=== PATIENT | male | born 1960 | race African-American/Black ===

== ENCOUNTER 2018-01-27 07:25 | Inpatient (IN) | payer MEDICAID ==
[~2018-01-27] VITALS: Ht 182.9 cm; Wt 104.3 kg
[2018-01-27] VITALS (23 sets, daily range): BP systolic 100–142; BP diastolic 52–83
[2018-01-27] MEDS ORDERED: SODIUM CHLORIDE 0.9% 1000ML BAG (SEPSIS BOLUS) IV ONE (07:45)
[2018-01-27] MEDS ORDERED: INSULIN REGULAR (DRIP) 100 UNITS in SODIUM CHLORIDE 0.9% 100 ML IV ONE (07:45)
[2018-01-27] MEDS ORDERED: LIDOCAINE HCL 2% JELLY 5ML TOP ONE (08:15)
[2018-01-27 08:29] LABS: CLARITY URINE CLOUDY (CLEAR); COLOR URINE DARK YELLOW (YELLOW); KETONES URINE TRACE (NEGATIVE); LEUKOCYTE ESTERASE URINE NEGATIVE (NEGATIVE); MEAN CORPUSCULAR VOLUME 83.2 fL (80.0-94.0); MEAN PLATELET VOLUME 8.3 fl (7.4-10.4); NITRITE URINE NEGATIVE (NEGATIVE); OCCULT BLOOD URINE TRACE (NEGATIVE); PROTEIN URINE NEGATIVE (NEGATIVE); RED BLOOD CELL COUNT 2.38 mill/uL (4.7-6.1); RED CELL DISTRIBUTION WIDTH 17.4 % (11.6-14.6); SPECIFIC GRAVITY URINE 1.018 (1.005-1.030); UROBILINOGEN URINE 0.2 E.U./dL (0.2-1.0)
[2018-01-27] MEDS ORDERED: INSULIN REGULAR (DRIP) 100 UNITS in SODIUM CHLORIDE 0.9% 99 ML IV ONE (08:30)
[2018-01-27 08:35] LABS: CHLORIDE 92 mEq/L (98-107)
[2018-01-27 08:37] LABS: HEMATOCRIT. 19.8 % (42.0-52.0); HEMOGLOBIN. 6.9 g/dL (14.0-18.0); PLATELET 50 x1000/uL (130-400)
[2018-01-27 08:39] LABS: ETHANOL BLOOD < 10 mg/dL
[2018-01-27 08:42] LABS: INR 1.1; PARTIAL THROMBOPLASTIN TIME 26.3 sec (23.4-31.0); PROTHROMBIN TIME 11.4 sec (9.1-11.1)
[2018-01-27 08:43] LABS: PHOSPHORUS 6.5 mg/dL (2.5-4.9)
[2018-01-27 08:45] LABS: BETA HYDROXYBUTYRATE 3.1 mMol/L (0.0-0.3)
[2018-01-27] MEDS ORDERED: PIPERACILLIN/TAZ 3.375G PREMIX 50 ML IV ONE (08:45)
[2018-01-27] MEDS ORDERED: VANCOMYCIN 1 G PREMIX 200 ML IV SCH ×2 (08:45→09:30)
[2018-01-27 08:49] LABS: *AMPHETAMINES SCREEN URINE NEGATIVE (NEGATIVE); *BARBITURATES SCREEN URINE NEGATIVE (NEGATIVE); *BENZODIAZEPINES SCREEN URINE NEGATIVE (NEGATIVE); *COCAINE SCREEN URINE NEGATIVE (NEGATIVE); METHADONE URINE SCREEN NEGATIVE (NEGATIVE); OPIATES URINE SCREEN NEGATIVE (NEGATIVE)
[2018-01-27 08:50] LABS: CANNABINOID URINE SCREEN NEGATIVE (NEGATIVE); PHENCYCLIDINE URINE SCREEN NEGATIVE (NEGATIVE)
[2018-01-27 08:57] LABS: PLATELET ESTIMATE MARKEDLY DECREASED; TOTAL IRON BINDING CAPACITY 152 ug/dL (250-450)
[2018-01-27] MEDS ORDERED: CALCIUM CHLORIDE 1GM/10ML SYR IV ONE (09:15)
[2018-01-27] MEDS ORDERED: INSULIN REGULAR (HUMULIN R) 300UNITS/3ML IV ONE (09:15)
[2018-01-27] MEDS ORDERED: SODIUM BICARBONATE 8.4% 1 MEQ/ML 50ML SYR IV ONE (09:15)
[2018-01-27] MEDS ORDERED: DEXTROSE 50% WATER 50ML SYRINGE IV ONE (09:15)
[2018-01-27] MEDS ORDERED: DEXT 5%/0.45% NACL 1000ML 1,000 ML IV SCH (09:24)
[2018-01-27] MEDS ORDERED: CLONIDINE 0.1MG TABLET PO PRN (09:30)
[2018-01-27] MEDS ORDERED: GUAIFENESIN 200MG/10ML SUGAR FREE UDC PO PRN (09:30)
[2018-01-27] MEDS ORDERED: DIPHENHYDRAMINE 50MG/ML VIAL IV PRN (09:30)
[2018-01-27] MEDS ORDERED: IPRATROPIUM/ALBUTEROL 0.5-3(2.5)MG/3ML NEB INH PRN (09:30)
[2018-01-27] MEDS ORDERED: ONDANSETRON HCL 4MG/2ML INJ IV PRN (09:30)
[2018-01-27] MEDS ORDERED: NA PHOS,M-B/NA PHOS,DI-BA ENEMA 118ML PR PRN (09:30)
[2018-01-27] MEDS ORDERED: MAGNESIUM/ALUMINUM HYDROXIDE/SIMETHICONE 30ML UDC PO PRN (09:30)
[2018-01-27] MEDS ORDERED: DEXTROSE 50% WATER 50ML SYRINGE IV PRN (09:30)
[2018-01-27] MEDS ORDERED: LIDOCAINE HCL 1% 20ML VIAL (Pyxis) INJ ONE (09:50)
[2018-01-27 10:09] LABS: BG BASE EXCESS -9.5 mmol/L (-2.0-2.0); BG CARBOXYHEMOGLOBIN 0.1 % (0.5-1.5); BG DEOXYHEMOGLOBIN 2.8 % (0.0-5.0); BG FRACTION INSPIRED OXYGEN 21; BG HCO3 ACT 14.1 mmol/L (22.0-26.0); BG METHEMOGLOBIN 0.4 % (0.0-1.5); BG OXYGEN SATURATION 97.2 % (92.0-98.5); BG OXYHEMOGLOBIN 96.7 % (94.0-97.0); BG PCO2 22.7 mmHg (35.0-45.0); BG PH 7.411 (7.350-7.450); BG PO2 109.3 mmHg (75.0-100.0); BG SAMPLE SITE RIGHT BRACHIAL; BG VENT MODE NASAL CANNULA
[2018-01-27] MEDS ORDERED: PIPERACILLIN/TAZ 2.25G PREMIX 50 ML IV SCH (12:00)
[2018-01-27] MEDS ORDERED: SODIUM POLYSTYRENE SULFONATE 15 G/60 ML BOT PO NR (12:00)
[2018-01-27] MEDS: BLOOD SUGAR DIAGNOSTIC STRIP TEST SCH ×3 (12:17→20:56)
[2018-01-27] MEDS: INSULIN LISPRO 100 UNITS/ML SUBCUT SCH ×3 (12:49→20:55)
[2018-01-27] MEDS: SODIUM CHLORIDE 0.9% INJ 3ML FLUSH IVF SCH ×2 (13:02→21:28)
[2018-01-27 15:36] LABS: T4 FREE 1.29 ng/dL (0.76-1.46)
[2018-01-27 15:37] LABS: CREATINE KINASE MB FRACTION 1.1 ng/mL (0.5-3.6)
[2018-01-27] MEDS ORDERED: ACET-2178 PO (16:40)
[2018-01-27] MEDS ORDERED: LISI-604 PO (16:40)
[2018-01-27] MEDS ORDERED: METF500S7 PO (16:40)
[2018-01-27] MEDS ORDERED: HYDR25TA PO (16:40)
[2018-01-27] MEDS ORDERED: MELO-104 PO (16:40)
[2018-01-27] MEDS ORDERED: AMLO10TA80 PO (16:40)
[2018-01-27] MEDS ORDERED: ASPI-1158 PO (16:40)
[2018-01-27] MEDS ORDERED: GLIP5TAB12 PO (16:40)
[2018-01-27] MEDS ORDERED: GABA-529 PO (16:40)
[2018-01-27] MEDS: PIPERACILLIN/TAZ 2.25G PREMIX 50 ML IV SCH (17:27)
[2018-01-27] MEDS ORDERED: VANCOMYCIN 1 G PREMIX 200 ML IV NR (17:30)
[2018-01-27] MEDS: DEXT 5%/0.9% NACL 1,000 ML IV SCH (19:15)
[2018-01-27] MEDS: ACETAMINOPHEN 650MG/20.3ML UDC GT PRN (21:28)
[2018-01-27 23:07] LABS: D-DIMER 26.15 mg/L FEU (<0.50)
[2018-01-28] VITALS (41 sets, daily range): BP systolic 95–153; BP diastolic 41–105
[2018-01-28 00:16] LABS: CREATINE KINASE 204 IU/L (39-308)
[2018-01-28 00:17] LABS: CREATINE KINASE MB FRACTION < 1.0 ng/mL (0.5-3.6)
[2018-01-28] MEDS: PIPERACILLIN/TAZ 2.25G PREMIX 50 ML IV SCH ×5 (02:28→23:16)
[2018-01-28] MEDS: DEXT 5%/0.9% NACL 1,000 ML IV SCH ×3 (04:54→23:16)
[2018-01-28] MEDS: ACETAMINOPHEN 650MG/20.3ML UDC GT PRN ×3 (05:50→21:52)
[2018-01-28 05:55] LABS: HEMATOCRIT. 24.4 % (42.0-52.0); HEMOGLOBIN. 8.7 g/dL (14.0-18.0); MEAN CORPUSCULAR HEMOGLOBIN 30.1 pg (28.0-32.0); MEAN CORPUSCULAR VOLUME 84.1 fL (80.0-94.0); RED BLOOD CELL COUNT 2.91 mill/uL (4.7-6.1); RED CELL DISTRIBUTION WIDTH 16.7 % (11.6-14.6)
[2018-01-28 06:13] LABS: CHLORIDE 103 mEq/L (98-107)
[2018-01-28 06:24] LABS: LDL CHOLESTEROL 100 mg/dL (5-100); PHOSPHORUS 4.4 mg/dL (2.5-4.9)
[2018-01-28 06:25] LABS: HDL CHOLESTEROL 35 mg/dL (40-59)
[2018-01-28] MEDS: SODIUM CHLORIDE 0.9% INJ 3ML FLUSH IVF SCH ×3 (06:27→21:54)
[2018-01-28 06:36] LABS: PLATELET 43 x1000/uL (130-400)
[2018-01-28 07:33] LABS: PLATELET ESTIMATE MARKEDLY DECREASED
[2018-01-28] MEDS: BLOOD SUGAR DIAGNOSTIC STRIP TEST SCH ×4 (07:50→21:52)
[2018-01-28] MEDS: INSULIN LISPRO 100 UNITS/ML SUBCUT SCH ×4 (09:03→21:52)
[2018-01-28] MEDS ORDERED: VANCOMYCIN 1 G PREMIX 200 ML IV SCH (12:30)
[2018-01-29] VITALS (11 sets, daily range): BP systolic 95–138; BP diastolic 54–74
[2018-01-29] MEDS: PIPERACILLIN/TAZ 2.25G PREMIX 50 ML IV SCH ×3 (05:55→19:18)
[2018-01-29] MEDS: SODIUM CHLORIDE 0.9% INJ 3ML FLUSH IVF SCH ×3 (05:55→21:19)
[2018-01-29 06:46] LABS: HEMATOCRIT. 21.9 % (42.0-52.0); HEMOGLOBIN. 7.7 g/dL (14.0-18.0); MEAN CORPUSCULAR VOLUME 84.8 fL (80.0-94.0); MEAN PLATELET VOLUME 6.6 fl (7.4-10.4); RED BLOOD CELL COUNT 2.58 mill/uL (4.7-6.1); RED CELL DISTRIBUTION WIDTH 16.1 % (11.6-14.6)
[2018-01-29 07:16] LABS: CHLORIDE 101 mEq/L (98-107)
[2018-01-29 07:34] LABS: PHOSPHORUS 3.7 mg/dL (2.5-4.9)
[2018-01-29] MEDS: INSULIN LISPRO 100 UNITS/ML SUBCUT SCH ×4 (07:40→21:17)
[2018-01-29 07:51] LABS: BETA HYDROXYBUTYRATE < 0.1 mMol/L (0.0-0.3)
[2018-01-29 08:02] LABS: PLATELET 41 x1000/uL (130-400)
[2018-01-29 08:24] LABS: VITAMIN B12 SERUM >2000 pg/mL pg/mL (211-911)
[2018-01-29 09:29] LABS: NUCLEATED RED BLOOD CELLS 2 /100 WBC
[2018-01-29 09:30] LABS: PLATELET ESTIMATE MARKEDLY DECREASED
[2018-01-29] MEDS: ACETAMINOPHEN 650MG/20.3ML UDC GT PRN ×2 (11:50→20:23)
[2018-01-29] MEDS: BLOOD SUGAR DIAGNOSTIC STRIP TEST SCH ×3 (11:51→21:17)
[2018-01-29] MEDS: DEXT 5%/0.9% NACL 1,000 ML IV SCH (14:22)
[2018-01-29] MEDS: HYDROCODONE/ACETAMINOPHEN 5/325MG TABLET PO PRN (16:29)
[2018-01-29] MEDS ORDERED: MAGNESIUM 2 G PREMIX 50 ML IV NR (17:30)
[2018-01-30] VITALS (8 sets, daily range): BP systolic 114–165; BP diastolic 67–78
[2018-01-30] MEDS: PIPERACILLIN/TAZ 2.25G PREMIX 50 ML IV SCH ×5 (05:23→23:49)
[2018-01-30] MEDS: SODIUM CHLORIDE 0.9% INJ 3ML FLUSH IVF SCH ×3 (05:24→21:27)
[2018-01-30] MEDS: DEXT 5%/0.9% NACL 1,000 ML IV SCH ×3 (05:25→21:26)
[2018-01-30] MEDS: BLOOD SUGAR DIAGNOSTIC STRIP TEST SCH ×4 (06:39→21:27)
[2018-01-30 07:32] LABS: INR 1.1; PARTIAL THROMBOPLASTIN TIME 27.2 sec (23.4-31.0); PROTHROMBIN TIME 11.4 sec (9.1-11.1)
[2018-01-30 07:46] LABS: HEMOGLOBIN. 7.3 g/dL (14.0-18.0); MEAN CORPUSCULAR HEMOGLOBIN 30.2 pg (28.0-32.0); MEAN CORPUSCULAR VOLUME 84.4 fL (80.0-94.0); MEAN PLATELET VOLUME 6.5 fl (7.4-10.4); PLATELET 54 x1000/uL (130-400); RED BLOOD CELL COUNT 2.41 mill/uL (4.7-6.1); RED CELL DISTRIBUTION WIDTH 16.5 % (11.6-14.6)
[2018-01-30 07:57] LABS: HEMATOCRIT. 20.3 % (42.0-52.0)
[2018-01-30 09:48] LABS: CHLORIDE 102 mEq/L (98-107)
[2018-01-30 10:04] LABS: PHOSPHORUS 3.4 mg/dL (2.5-4.9)
[2018-01-30] MEDS ORDERED: MAGNESIUM 2 G PREMIX 50 ML IV NR (10:30)
[2018-01-30] MEDS: INSULIN LISPRO 100 UNITS/ML SUBCUT SCH ×3 (11:49→21:00)
[2018-01-30] MEDS ORDERED: PROPOFOL 200MG/20ML VIAL IV ONE (13:50)
[2018-01-30] MEDS ORDERED: LIDOCAINE HCL 1% 20ML VIAL (Pyxis) INJ ONE (13:50)
[2018-01-30] MEDS: ACETAMINOPHEN 650MG SUPP PR PRN (15:08)
[2018-01-30] MEDS ORDERED: GLIP5TAB12 PO (15:17)
[2018-01-30] MEDS ORDERED: VANCOMYCIN 1,250 MG in SODIUM CHLORIDE 0.9% 250 ML IV SCH (16:00)
[2018-01-30 16:33] LABS: ATYPICAL LYMPHOCYTES 1; NUCLEATED RED BLOOD CELLS 1 /100 WBC; PLATELET ESTIMATE MARKEDLY DECREASED
[2018-01-30] MEDS: ACETAMINOPHEN 650MG/20.3ML UDC GT PRN (23:49)
[2018-01-31] VITALS (9 sets, daily range): BP systolic 114–157; BP diastolic 63–85
[2018-01-31] MEDS: HYDROCODONE/ACETAMINOPHEN 5/325MG TABLET PO PRN (02:59)
[2018-01-31] MEDS: ACETAMINOPHEN 650MG/20.3ML UDC GT PRN ×2 (05:52→15:45)
[2018-01-31] MEDS: SODIUM CHLORIDE 0.9% INJ 3ML FLUSH IVF SCH ×3 (05:52→22:08)
[2018-01-31] MEDS: PIPERACILLIN/TAZ 2.25G PREMIX 50 ML IV SCH ×3 (05:52→20:41)
[2018-01-31] MEDS: INSULIN LISPRO 100 UNITS/ML SUBCUT SCH ×4 (06:27→22:07)
[2018-01-31] MEDS: BLOOD SUGAR DIAGNOSTIC STRIP TEST SCH ×4 (06:27→21:00)
[2018-01-31 07:27] LABS: MEAN CORPUSCULAR HEMOGLOBIN 29.9 pg (28.0-32.0); MEAN CORPUSCULAR VOLUME 84.4 fL (80.0-94.0); MEAN PLATELET VOLUME 6.7 fl (7.4-10.4); PLATELET 59 x1000/uL (130-400); RED BLOOD CELL COUNT 2.25 mill/uL (4.7-6.1); RED CELL DISTRIBUTION WIDTH 16.4 % (11.6-14.6)
[2018-01-31 07:53] LABS: HEMOGLOBIN. 6.7 g/dL (14.0-18.0)
[2018-01-31 07:57] LABS: CHLORIDE 102 mEq/L (98-107)
[2018-01-31 08:07] LABS: PHOSPHORUS 3.6 mg/dL (2.5-4.9)
[2018-01-31 10:48] LABS: PLATELET ESTIMATE MARKEDLY DECREASED
[2018-01-31] MEDS ORDERED: MAGNESIUM 2 G PREMIX 50 ML IV NR (11:00)
[2018-01-31] MEDS: FERROUS SULFATE 325MG TABLET PO SCH (11:59)
[2018-01-31] MEDS ORDERED: SODIUM PHOS,M-BASIC-D-BASIC 15 MM in DEXT 5% WATER 245 ML IV SCH (13:00)
[2018-01-31] MEDS ORDERED: VANCOMYCIN 1,250 MG in SODIUM CHLORIDE 0.9% 250 ML IV SCH (13:00)
[2018-01-31] MEDS: VANCOMYCIN 1 G PREMIX 200 ML IV SCH (16:00)
[2018-01-31] MEDS ORDERED: DIPHENHYDRAMINE 50MG/ML VIAL IV NR (16:00)
[2018-01-31] MEDS ORDERED: IBUPROFEN 400MG TABLET PO NR (16:45)
[2018-01-31 17:37] LABS: HEPATITIS B SURFACE ANTIGEN NEGATIVE
[2018-01-31 18:07] LABS: HEPATITIS A AB IGM NEGATIVE (NEGATIVE)
[2018-02-01] VITALS (31 sets, daily range): BP systolic 120–179; BP diastolic 62–104
[2018-02-01] MEDS: PIPERACILLIN/TAZ 2.25G PREMIX 50 ML IV SCH ×5 (00:54→23:56)
[2018-02-01] MEDS: ACETAMINOPHEN 650MG/20.3ML UDC GT PRN ×3 (00:57→19:25)
[2018-02-01] MEDS: VANCOMYCIN 1 G PREMIX 200 ML IV SCH ×3 (01:01→23:56)
[2018-02-01] MEDS ORDERED: DIPHENHYDRAMINE 50MG CAPSULE PO NR (01:30)
[2018-02-01] MEDS: ACETAMINOPHEN 650MG SUPP PR PRN (03:49)
[2018-02-01] MEDS: SODIUM CHLORIDE 0.9% INJ 3ML FLUSH IVF SCH ×3 (05:45→22:11)
[2018-02-01 07:26] LABS: MEAN CORPUSCULAR HEMOGLOBIN 30.4 pg (28.0-32.0); MEAN CORPUSCULAR VOLUME 85.2 fL (80.0-94.0); MEAN PLATELET VOLUME 6.6 fl (7.4-10.4); PLATELET 72 x1000/uL (130-400); RED BLOOD CELL COUNT 2.36 mill/uL (4.7-6.1); RED CELL DISTRIBUTION WIDTH 15.6 % (11.6-14.6)
[2018-02-01 07:58] LABS: HEMOGLOBIN. 7.2 g/dL (14.0-18.0)
[2018-02-01 07:59] LABS: HEMATOCRIT. 20.1 % (42.0-52.0)
[2018-02-01] MEDS: INSULIN LISPRO 100 UNITS/ML SUBCUT SCH ×4 (08:00→22:08)
[2018-02-01] MEDS: BLOOD SUGAR DIAGNOSTIC STRIP TEST SCH ×4 (08:14→21:00)
[2018-02-01] MEDS: FERROUS SULFATE 325MG TABLET PO SCH (09:00)
[2018-02-01 09:14] LABS: CHLORIDE 102 mEq/L (98-107)
[2018-02-01 10:02] LABS: ATYPICAL LYMPHOCYTES 4; NUCLEATED RED BLOOD CELLS 8 /100 WBC
[2018-02-01 10:03] LABS: PLATELET ESTIMATE DECREASED
[2018-02-01] MEDS ORDERED: MIDAZOLAM HCL 2 MG/2 ML VIAL ONE (10:45)
[2018-02-01] MEDS ORDERED: FENTANYL CITRATE/PF 50MCG/ML 2ML VIAL ONE (10:45)
[2018-02-01] MEDS ORDERED: DIPHENHYDRAMINE 50MG/ML VIAL ONE (10:46)
[2018-02-01] MEDS ORDERED: PROPOFOL 200MG/20ML VIAL IV ONE (10:51)
[2018-02-01] MEDS ORDERED: FLUCONAZOLE 400MG/200ML BAG 200 ML IV SCH (16:00)
[2018-02-01] MEDS ORDERED: MAGNESIUM 2 G PREMIX 50 ML IV NR (17:00)
[2018-02-01] MEDS: METHYLPREDNISOLONE SOD SUCC 40 MG/ML VIAL IV SCH (23:56)
[2018-02-02] VITALS (11 sets, daily range): BP systolic 120–154; BP diastolic 66–92
[2018-02-02] MEDS: PIPERACILLIN/TAZ 2.25G PREMIX 50 ML IV SCH ×2 (05:41→12:20)
[2018-02-02] MEDS: SODIUM CHLORIDE 0.9% INJ 3ML FLUSH IVF SCH ×3 (05:42→21:25)
[2018-02-02 06:04] LABS: HEMOGLOBIN. 7.2 g/dL (14.0-18.0); MEAN CORPUSCULAR HEMOGLOBIN 30.1 pg (28.0-32.0); MEAN CORPUSCULAR VOLUME 84.9 fL (80.0-94.0); MEAN PLATELET VOLUME 6.7 fl (7.4-10.4); PLATELET 80 x1000/uL (130-400); RED CELL DISTRIBUTION WIDTH 16.3 % (11.6-14.6)
[2018-02-02 06:32] LABS: CHLORIDE 99 mEq/L (98-107)
[2018-02-02 06:44] LABS: PHOSPHORUS 4.7 mg/dL (2.5-4.9)
[2018-02-02 06:56] LABS: HEMATOCRIT. 20.4 % (42.0-52.0)
[2018-02-02] MEDS: METHYLPREDNISOLONE SOD SUCC 40 MG/ML VIAL IV SCH ×3 (07:03→17:20)
[2018-02-02] MEDS: BLOOD SUGAR DIAGNOSTIC STRIP TEST SCH ×4 (07:04→20:58)
[2018-02-02 07:16] LABS: HIV SCREEN 4G Non Reactive (Non Reactive)
[2018-02-02] MEDS ORDERED: GLIPIZIDE XL 2.5MG TABLET PO SCH (08:00)
[2018-02-02] MEDS: INSULIN LISPRO 100 UNITS/ML SUBCUT SCH ×4 (08:00→21:21)
[2018-02-02 08:22] LABS: IMMUNOGLOBULIN A 223 mg/dL (90-386); IMMUNOGLOBULIN G 1691 mg/dL (700-1600); IMMUNOGLOBULIN M 129 mg/dL (20-172)
[2018-02-02] MEDS: FERROUS SULFATE 325MG TABLET PO SCH (09:21)
[2018-02-02] MEDS ORDERED: MAGNESIUM 2 G PREMIX 50 ML IV NR (12:00)
[2018-02-02] MEDS ORDERED: VANCOMYCIN 1250MG in DEXTROSE 5% WATER 250ML IV SCH (13:00)
[2018-02-02 13:59] LABS: NUCLEATED RED BLOOD CELLS 2 /100 WBC
[2018-02-02 14:01] LABS: PLATELET ESTIMATE DECREASED
[2018-02-02] MEDS: MAGNESIUM OXIDE 400MG TABLET PO SCH (17:20)
[2018-02-02 19:11] LABS: ANTI-DNA DOUBLE STRANDED QUANT < 1 IU/mL (0-9); RNP ANTIBODY < 0.2 AI (0.0-0.9); SMITH ANTIBODY < 0.2 AI (0.0-0.9)
[2018-02-03] VITALS (26 sets, daily range): BP systolic 121–155; BP diastolic 71–93
[2018-02-03] MEDS ORDERED: FILGRASTIM-TBO 480 MCG/0.8 ML SYRINGE SQ SCH (01:00)
[2018-02-03] MEDS: HYDROCODONE/ACETAMINOPHEN 5/325MG TABLET PO PRN (02:58)
[2018-02-03] MEDS: METHYLPREDNISOLONE SOD SUCC 40 MG/ML VIAL IV SCH ×4 (05:28→17:35)
[2018-02-03] MEDS: BLOOD SUGAR DIAGNOSTIC STRIP TEST SCH ×4 (07:30→20:47)
[2018-02-03 08:37] LABS: CHLORIDE 99 mEq/L (98-107)
[2018-02-03 08:46] LABS: PHOSPHORUS 4.5 mg/dL (2.5-4.9)
[2018-02-03] MEDS ORDERED: FILGRASTIM 300 MCG/ML VIAL SUBCUT SCH (09:00)
[2018-02-03 09:11] LABS: COMPLEMENT C3 162 mg/dL (82-167)
[2018-02-03] MEDS: INSULIN LISPRO 100 UNITS/ML SUBCUT SCH ×5 (09:23→21:01)
[2018-02-03 09:24] LABS: MEAN CORPUSCULAR HEMOGLOBIN 30.3 pg (28.0-32.0); MEAN CORPUSCULAR VOLUME 84.3 fL (80.0-94.0); MEAN PLATELET VOLUME 6.8 fl (7.4-10.4); PLATELET 91 x1000/uL (130-400); RED BLOOD CELL COUNT 2.17 mill/uL (4.7-6.1); RED CELL DISTRIBUTION WIDTH 15.9 % (11.6-14.6)
[2018-02-03 09:28] LABS: HEMOGLOBIN. 6.6 g/dL (14.0-18.0)
[2018-02-03 09:29] LABS: HEMATOCRIT. 18.3 % (42.0-52.0)
[2018-02-03] MEDS: FERROUS SULFATE 325MG TABLET PO SCH (10:09)
[2018-02-03] MEDS: MAGNESIUM OXIDE 400MG TABLET PO SCH ×2 (10:10→17:35)
[2018-02-03 10:13] LABS: NUCLEATED RED BLOOD CELLS 3 /100 WBC
[2018-02-03 10:14] LABS: PLATELET ESTIMATE DECREASED
[2018-02-03] MEDS ORDERED: INSULIN GLARGINE UD 100 UNITS/ML SYR SUBCUT SCH (11:00)
[2018-02-03 13:16] LABS: ANA IFA Negative (.)
[2018-02-03] MEDS: GLIPIZIDE 5MG XL TABLET PO SCH (13:42)
[2018-02-03] MEDS: FILGRASTIM-TBO 480 MCG/0.8 ML SYRINGE SQ SCH (21:08)
[2018-02-04] VITALS (8 sets, daily range): BP systolic 125–154; BP diastolic 70–94
[2018-02-04] MEDS: METHYLPREDNISOLONE SOD SUCC 40 MG/ML VIAL IV SCH ×2 (00:20→06:40)
[2018-02-04] MEDS ORDERED: HYDROCODONE/ACETAMINOPHEN 5/325MG TABLET PO PRN (00:30)
[2018-02-04 07:06] LABS: BASOPHILS % 0.3 % (0.0-2.0); EOSINOPHILS % 0.1 % (0.0-5.0); HEMATOCRIT. 25.7 % (42.0-52.0); HEMOGLOBIN. 9.3 g/dL (14.0-18.0); LYMPHOCYTES % 43.8 % (20.0-50.0); MEAN CORPUSCULAR HEMOGLOBIN 30.5 pg (28.0-32.0); MEAN CORPUSCULAR VOLUME 84.7 fL (80.0-94.0); MEAN PLATELET VOLUME 6.7 fl (7.4-10.4); MONOCYTES % 8.1 % (2.0-8.0); NEUTROPHILS % 47.7 % (40.0-76.0); PLATELET 87 x1000/uL (130-400); RED BLOOD CELL COUNT 3.03 mill/uL (4.7-6.1); RED CELL DISTRIBUTION WIDTH 15.6 % (11.6-14.6)
[2018-02-04 07:53] LABS: CHLORIDE 101 mEq/L (98-107)
[2018-02-04 07:58] LABS: PHOSPHORUS 3.6 mg/dL (2.5-4.9)
[2018-02-04] MEDS: BLOOD SUGAR DIAGNOSTIC STRIP TEST SCH ×4 (07:59→20:24)
[2018-02-04] MEDS: FERROUS SULFATE 325MG TABLET PO SCH (08:12)
[2018-02-04] MEDS: GLIPIZIDE 5MG XL TABLET PO SCH (08:12)
[2018-02-04] MEDS: MAGNESIUM OXIDE 400MG TABLET PO SCH ×2 (08:12→17:35)
[2018-02-04] MEDS: INSULIN LISPRO 100 UNITS/ML SUBCUT SCH ×4 (08:13→20:58)
[2018-02-04 09:09] LABS: ALDOLASE 5.6 U/L (3.3-10.3); ANGIOTENSION CONVERTING ENZYME 23 U/L (14-82); DRVVT LA 52.1 sec (0.0-47.0); DRVVT MIX LA 44.8 sec (0.0-47.0); PTT-LA 44.7 sec (0.0-51.9)
[2018-02-04 13:09] LABS: ANTI-MYELOPEROXIDASE AB < 9.0 U/mL (0.0-9.0); ANTI-PROTEINASE 3 ABS < 3.5 U/mL (0.0-3.5)
[2018-02-04] MEDS ORDERED: P20 MT (16:16)
[2018-02-04] MEDS: PREDNISONE 20MG TABLET PO SCH (17:35)
[2018-02-04] MEDS: SODIUM CHLORIDE 0.9% INJ 3ML FLUSH IVF SCH ×2 (17:48→21:00)
[2018-02-04] MEDS: FILGRASTIM-TBO 480 MCG/0.8 ML SYRINGE SQ SCH (21:53)
[2018-02-05] VITALS (8 sets, daily range): BP systolic 134–167; BP diastolic 77–98
[2018-02-05] MEDS: GLIPIZIDE 5MG XL TABLET PO SCH (06:43)
[2018-02-05] MEDS: SODIUM CHLORIDE 0.9% INJ 3ML FLUSH IVF SCH (06:44)
[2018-02-05 07:26] LABS: HEMATOCRIT 27.1 % (42.0-52.0); HEMOGLOBIN 9.7 g/dL (14.0-18.0); MEAN CORPUSCULAR HEMOGLOBIN 30.5 pg (28.0-32.0); MEAN CORPUSCULAR VOLUME 85.9 fL (80.0-94.0); PLATELET 94 x1000/uL (130-400); RED BLOOD CELL COUNT 3.16 mill/uL (4.7-6.1); RED CELL DISTRIBUTION WIDTH 15.9 % (11.6-14.6)
[2018-02-05] MEDS: MAGNESIUM OXIDE 400MG TABLET PO SCH (08:15)
[2018-02-05] MEDS: PREDNISONE 20MG TABLET PO SCH (08:15)
[2018-02-05] MEDS: FERROUS SULFATE 325MG TABLET PO SCH (08:15)
[2018-02-05] MEDS: INSULIN LISPRO 100 UNITS/ML SUBCUT SCH ×2 (08:16→11:36)
[2018-02-05] MEDS: BLOOD SUGAR DIAGNOSTIC STRIP TEST SCH ×2 (08:21→11:36)
[2018-02-05 13:06] LABS: ANTI-CARDIOLIPIN AB IGA < 9 APL U/mL (0-11); ANTI-CARDIOLIPIN AB IGG < 9 GPL U/mL (0-14)
[2018-02-06 08:12] LABS: LUPUS ANTICOAG INTERPRETATION Comment: (.)
[2018-02-06 13:10] LABS: GLOMERULAR BASEMENT MEMB AB 4 units (0-20)
[2018-02-06 14:12] LABS: ATYPICAL P-ANCA <1:20 titer (Neg:<1:20); CYTOPLASMIC C-ANCA <1:20 titer (Neg:<1:20); PERINUCLEAR P-ANCA <1:20 titer (Neg:<1:20)
== END 2018-02-05 13:20 | disposition home or self-care (01) | DRG 720 ==
LOC: ER 07:25 → CVICU 09:01 → ENRESERV 09:02 → EDBEDREQTM 09:05 → EDBEDREQ 09:05 → 8WST 01-29 07:31 → 5WST 01-31 20:50 → 5EST 01-31 21:00
PROVIDERS: ADMIT Family Medicine; ATTEND Family Medicine
PROC: 02HV33Z Insertion of Infusion Device into Superior Vena Cava, Percutaneous Approach (ICD-10-PCS; principal; 2018-01-27)
PROC: B548ZZA Ultrasonography of Superior Vena Cava, Guidance (ICD-10-PCS; 2018-01-27)
PROC: 30233N1 Transfusion of Nonautologous Red Blood Cells into Peripheral Vein, Percutaneous Approach (ICD-10-PCS; 2018-01-27)
PROC: 5A1D70Z Performance of Urinary Filtration, Intermittent, Less than 6 Hours Per Day (ICD-10-PCS; 2018-01-27)
PROC: 07DQ3ZX Extraction of Sternum Bone Marrow, Percutaneous Approach, Diagnostic (ICD-10-PCS; 2018-01-30)
PROC: 07DR3ZX Extraction of Iliac Bone Marrow, Percutaneous Approach, Diagnostic (ICD-10-PCS; 2018-01-30)
DX: A41.9 Sepsis, unspecified organism (principal); N17.1 Acute kidney failure with acute cortical necrosis; D61.818 Other pancytopenia; G93.41 Metabolic encephalopathy; E44.0 Moderate protein-calorie malnutrition; E66.9 Obesity, unspecified; M54.5 Low back pain; G89.29 Other chronic pain; E11.65 Type 2 diabetes mellitus with hyperglycemia; E87.1 Hypo-osmolality and hyponatremia; E87.5 Hyperkalemia; E83.42 Hypomagnesemia; N18.9 Chronic kidney disease, unspecified; E11.22 Type 2 diabetes mellitus with diabetic chronic kidney disease; E78.00 Pure hypercholesterolemia, unspecified; I25.10 Atherosclerotic heart disease of native coronary artery without angina pectoris; E78.5 Hyperlipidemia, unspecified; I12.9 Hypertensive chronic kidney disease with stage 1 through stage 4 chronic kidney disease, or unspecified chronic kidney disease; R50.81 Fever presenting with conditions classified elsewhere; Z68.29 Body mass index [BMI] 29.0-29.9, adult; Z79.1 Long term (current) use of non-steroidal anti-inflammatories (NSAID); Z79.84 Long term (current) use of oral hypoglycemic drugs; Z79.899 Other long term (current) drug therapy; Z82.49 Family history of ischemic heart disease and other diseases of the circulatory system; Z83.3 Family history of diabetes mellitus; Z68.31 Body mass index [BMI] 31.0-31.9, adult
CPT/HCPCS: 36415; 36569; 36600; 38220; 38221; 71045; 71250; 74176; 76770; 76937; 78580; 80048; 80061; 80202; 80305; 82010; 82085; 82164; 82375; 82533; 82550; 82553; 82607; 82746; 82784; 82805; 82962; 83036; 83520; 83540; 83550; 83605; 83735; 83880; 84100; 84134; 84145; 84439; 84443; 84484; 85027; 85044; 85060; 85097; 85362; 85379; 85384; 85613; 85651; 85732; 86140; 86147; 86160; 86225; 86235; 86256; 86334; 86592; 86705; 86709; 86780; 86803; 86850; 86880; 86900; 86920; 87340; 87389; 87804; 88305; 88311; 88313; 93005; 93306; 93970; 96365; 96366; 97162; 97164; 97166; 97168; 99291; A6261; C1752; C1769; G0482; J1200; J1442; J1450; J1815; J2250; J2543; J2704; J2920; J3010; J3370; J3475; J3490; J7030; J7040; J7042; J7050; J7060; J7512; P9016; Q0163